=== PATIENT | male | born 1995 | race Caucasian/White ===

== ENCOUNTER 2017-03-23 10:05 | Emergency (ER) | payer OTHER ==
[~2017-03-23] VITALS: Ht 182.9 cm; Wt 61.2 kg
[2017-03-23 10:45] LABS: ABSOLUTE NEUTROPHILS 4.7 thou/uL (1.4-8.2); BASOPHILS 0.4 % (0.0-2.0); EOSINOPHILS 1.5 % (0.0-3.0); MCH 29.4 pg (26.0-34.0); MCHC 34.1 g/dL (28.0-37.0); MCV 86.2 fL (80.0-100.0); MONOCYTES 8.7 % (1.0-8.0); PLATELET COUNT 274 thou/uL (150-400); POLYS 60.4 % (36.0-66.0); RDW 12.8 % (10.5-14.5); WBC 7.8 thou/uL (4.0-11.0)
[2017-03-23 10:46] LABS: MANUAL DIFF NO
[2017-03-23 10:48] LABS: CALCIUM 9.8 mg/dL (8.5-10.1); CREATININE 0.9 mg/dL (0.7-1.3); POTASSIUM 4.3 mmol/L (3.5-5.1)
[2017-03-23 10:54] LABS: ALBUMIN 4.6 g/dL (3.4-5.0); DIRECT BILIRUBIN 0.1 mg/dL (<0.1-0.3); TOTAL BILIRUBIN 0.6 mg/dL (<0.1-1.0); TOTAL PROTEIN 7.8 g/dL (6.4-8.2)
[2017-03-23 11:56] LABS: URINE BILIRUBIN NEGATIVE (Negative); URINE BLOOD NEGATIVE (Negative); URINE COLOR YELLOW; URINE GLUCOSE-RANDOM* NEGATIVE (Negative); URINE KETONES NEGATIVE (Negative); URINE NITRITE NEGATIVE (Negative); URINE PROTEIN (DIPSTICK) NEGATIVE (Negative); URINE UROBILINOGEN 0.2 E.U./dl (0.2-1.0)
[2017-03-23 12:16] LABS: SSA (PROTEIN CONFIRMATORY) NEGATIVE (Negative)
[2017-03-23] MEDS ORDERED: ULTRAM 50MG TAB50 MG PO (12:47)
[2017-03-23] MEDS ORDERED: MOBIC15 MG PO (12:47)
[2017-03-23 12:48] VITALS: BP 111/66
== END 2017-03-23 13:04 | disposition home or self-care (01) ==
LOC: ER 10:05
PROVIDERS: Nurse Practitioner
DX: R10.9 Unspecified abdominal pain (principal); F17.210 Nicotine dependence, cigarettes, uncomplicated